=== PATIENT | female | born 1985 | race African-American/Black ===

== ENCOUNTER → 2017-03-06 | Outpatient (CLI) | payer BC ==
--- NOTE | ~2017-03-06 | US5 ---
[facility] A Service of [facility] / [facility] RADIOLOGY TEXT RESULTS PATIENT: TRUDY GEORGE LOCATION: [facility] : 87 UNIT #: [id number] AGE: [address]: Manuel Burks MD SEX: F ORDER DR: [id number] [facility] [address] [place], [place] [address] [id number] O MR#: [id number] Acc #: [id number] NAME: TRUDY GEORGE : 1985 SEX: F STUDY DATE/TIME: 03/06/2017 7:34 UNIT: US ROOM: STUDY DESCRIPTION: US Abdominal Complete Attending Physician: Manuel Burks M.D. Referring Physician: Manuel Burks M.D. Ordering Physician: Manuel Burks M.D. Primary Care Physician: Manuel Burks M.D. MEDICAL IMAGING REPORT This report is preliminary unless electronic signature is present EXAM Abdominal ultrasound INDICATION Abdominal pain, nausea, left upper quadrant and periumbilical pain for the past year. Concern for an abdominal hernia. PROCEDURE Swift scale and Doppler imaging of the abdomen. FINDINGS Visualized portion of pancreas unremarkable. Images of the abdominal aorta, inferior vena cava unremarkable. Imaging in the umbilical region in the area of patient's pain shows no sonographic abnormality. Unremarkable gallbladder. Common duct measures 4 mm. Right kidney measures 9.6 cm and is unremarkable. Liver measures 15.9 cm. No liver masses seen on submitted images. Left kidney is not well seen on the study but measures approximately 11 cm. Spleen measures 10.2 cm. IMPRESSION Certain structures are obscured by bowel gas and not well seen. There is no abnormality seen in the umbilical region. Overall, negative abdominal ultrasound. Dictated by... Tejinder Bronson M.D. THIS IS AN ELECTRONICALLY VERIFIED REPORT Tejinder Bronson M.D. at 03/10/2017 9:54 AM LUPIS/ramona TD: 03/06/2017 10:42 [facility] A Service of [facility] RADIOLOGY TEXT RESULTS PATIENT: TRUDY GEORGE LOCATION: [facility] #: [id number] : 87 UNIT #: [id number] AGE: [address]: Manuel Burks MD SEX: F ORDER DR: MINDY #: [id number] MEDICAL IMAGING REPORT Page 1 of 1 COPY
== END | disposition home or self-care (01) ==
LOC: CGUS 07:08
DX: K46.9 Unspecified abdominal hernia without obstruction or gangrene (principal)
CPT/HCPCS: 76700